=== PATIENT | male | born 1935 | race Caucasian/White ===

== ENCOUNTER → 2017-02-14 | Outpatient (CLI) | payer MEDICARE, OTHER ==
[~2017-02-14] MED LIST: ADVAIR DISK28 PUFFS INH; ALBUTEROL2.5 MG/NEB IN; AMBIEN 10MG TAB10 MG PO; AZITHROMYCIN250 M1 PO; CEFDINIR300 M1 PO; COMBIVENT INH14.7 GM IN; DUONEB 3 MG/3 ML3 ML INH; IPRATROPIUM 2.2.5 ML IH; LEVAQUIN 750 M750 MG PO; LEVAQUIN500 MG PO; NEBULIZER TX IH; PROAIR HFA0.09 MG/AC IH; TESSALON PERLE200 MG PO
--- NOTE | 2017-02-15 06:44 | RADIOLOGY REPORT PS360 ---
CT CHEST W/O CONTRAST HISTORY: Shortness of breath, history of lung cancer SOB, HX LUNG CA ORDERING PHYSICIAN: Tonny Zayas MD PATIENT AGE: 81 years TECHNIQUE: Helical acquisition obtainedwithout contrast. Axial, sagittal, and coronal reformatted images are generated and reviewed. COMPARISON: Radiograph of 05/09/2015 FINDINGS: Atherosclerotic changes involve the aorta. There are extensive coronary artery calcifications consistent with coronary artery disease. Normal heart size. No evidence of pericardial effusion. Fibronodular changes noted in the apices bilaterally. There are centrilobular emphysematous changes with scattered areas of pulmonary fibrosis. There are few calcified nodes in the [place]. No lobar consolidation or collapse is evident. No suspicious pulmonary nodules are apparent. There is mild diffuse bronchial thickening. No effusions. Upper abdominal images are unremarkable. There are old fractures of the right sixth and seventh ribs which may be from prior thoracotomy defect. May be some surgical clips posterior to the right lower lobe bronchus. IMPRESSION: 1. Centrilobular emphysematous changes with scattered areas of pulmonary fibrosis. 2. Postsurgical changes from prior right posterior thoracotomy. 3. Coronary artery disease. 4. No suspicious nodules infiltrates or effusions HEART: Unremarkable. Normal heart size. No significant pericardial effusion. MEDIASTINAL AND HILAR STRUCTURES: No mediastinal or hilar mass evident. No dominant adenopathy. PULMONARY ARTERIES: No pulmonary embolus evident. AORTA: No acute finding. No thoracic aortic aneurysm or dissection evident LUNGS: Unremarkable. No mass or consolidation. PLEURAL SPACES: No significant effusion. No evidence of pneumothorax. BONY STRUCTURES: No acute bony abnormalities apparent LYMPH NODES: No enlarged lymph nodes evident UPPER ABDOMEN: Unremarkable ADDITIONAL FINDINGS: No other significant abnormalities IMPRESSION:
== END ==
LOC: RAD 12:58
DX: R06.02 Shortness of breath (principal); Z85.118 Personal history of other malignant neoplasm of bronchus and lung